=== PATIENT | female | born 1975 | race Caucasian/White ===

== ENCOUNTER 2017-05-10 17:36 | Emergency (ER) | payer OTHER ==
[~2017-05-10] VITALS: Ht 157.5 cm; Wt 75.0 kg
[2017-05-10] MEDS ORDERED: PREDNISONE10 MG PO (18:50)
[2017-05-10] MEDS ORDERED: ATARAX,VISTARIL25 MG PO (18:50)
[2017-05-10 19:26] VITALS: BP 140/111
== END 2017-05-10 19:27 | disposition home or self-care (01) ==
LOC: EDBD 17:36 → EME 17:36
DX: S00.86XA Insect bite (nonvenomous) of other part of head, initial encounter (principal); S80.862A Insect bite (nonvenomous), left lower leg, initial encounter; S80.861A Insect bite (nonvenomous), right lower leg, initial encounter; S40.862A Insect bite (nonvenomous) of left upper arm, initial encounter; S40.861A Insect bite (nonvenomous) of right upper arm, initial encounter; W57.XXXA Bitten or stung by nonvenomous insect and other nonvenomous arthropods, initial encounter; J45.909 Unspecified asthma, uncomplicated; F17.200 Nicotine dependence, unspecified, uncomplicated; Z91.048 Other nonmedicinal substance allergy status
CPT/HCPCS: 99281; 99284; J1100; J3410